=== PATIENT | female | born 1965 | race Caucasian/White ===

== ENCOUNTER → 2016-08-29 | Outpatient (CLI) | payer OTHER ==
--- NOTE | 2016-08-29 12:12 | DI ---
MRI LEFT KNEE SCAN, 08/29/2016 9:59 AM: Clinical History: Left knee pain. Previous Exam: 02/12/2016. Technique: Axial, coronal, and sagittal PD and fat saturated PD; axial T1 weighted. There is no soft tissue edema. There is no significant joint effusion. No abnormal bone signal patter n is present. The medial and lateral collateral ligaments and the posterior cruciate ligaments are no rmal. There is intermediate signal intensity in the distal aspect of the anterior cruciate ligament c onsistent with a chronic partial tear. The medial meniscus is also normal. There is a vertical tear i n the body of the lateral meniscus near the inner margin. This was not evident on the previous exam a nd either was not visible on the previous study due to volume averaging, or this is a tear that has d eveloped since the previous exam. The anterior and posterior horns are intact. The quadriceps, patell ar, and popliteus tendons and the tendons of the medial and lateral heads of the gastrocnemius muscle are normal. The articular surfaces of all 3 compartments are intact. Readin. There is a very small vertically oriented tear toward the inner margin of the body of the lateral meniscus. This either has developed since the previous study or was not identifiable secondary to vo lume averaging. A chronic tear is present in the distal aspect of the ACL. 2. The MCL, LCL, PCL, medial meniscus, the popliteus and patellar and quadriceps tendons, and the te ndons of the medial and lateral heads of the gastrocnemius muscle are normal. The articular surfaces of all 3 compartments are intact.
== END ==
LOC: MRI 09:56
PROVIDERS: ATTEND Orthopaedic Surgery
DX: M25.562 Pain in left knee (principal); S83.282A Other tear of lateral meniscus, current injury, left knee, initial encounter; S83.512A Sprain of anterior cruciate ligament of left knee, initial encounter
CPT/HCPCS: 73721